=== PATIENT | female | born 1980 | race Caucasian/White ===

== ENCOUNTER 2017-02-09 20:15 | Emergency (ER) | payer BC | END 2017-02-10 02:00 | disposition home or self-care (01) | LOC: ER1 20:15 | DX: S92.414A Nondisplaced fracture of proximal phalanx of right great toe, initial encounter for closed fracture (principal); S91.311A Laceration without foreign body, right foot, initial encounter; Z23 Encounter for immunization; W21.03XA Struck by baseball, initial encounter; Y92.009 Unspecified place in unspecified non-institutional (private) residence as the place of occurrence of the external cause; Z88.0 Allergy status to penicillin | CPT/HCPCS: 73630; 90471; 90715; 96372; 99283; J0690 ==